=== PATIENT | male | born 1995 | race Caucasian/White ===

== ENCOUNTER 2021-05-23 09:42 | Emergency (ER) | payer SELFPAY ==
[~2021-05-23] VITALS: Ht 160 cm; Wt 80.7 kg
[2021-05-23 09:55] VITALS: BP_SYST 136
--- NOTE | 2021-05-23 09:55 | NUR ---
Pt walked in to ER with c/o headache 6/10, abdominal pain 3/10 and nausea x4 days. Reports cough and SOB on exhertion. H/O asthma and pt is fully vaccinated. 100% on RA, other v/s stable, no acute distress noted.
--- NOTE | 2021-05-23 09:55 | NUR ---
Placed in room 8 . Placed on cardiac nurse, blood pressure machine and pulse oximeter. To gown for exam. Side rails up.
--- NOTE | 2021-05-23 10:01 | NUR ---
ER Dr. Sun at bedside examining patient.
[2021-05-23] MEDS ORDERED: IBUPROFEN 800 MG TABLET PO ONE (10:15)
[2021-05-23] MEDS ORDERED: HYDROcodone/ACETAMIN 10-325 MG TAB PO ONE (10:15)
[2021-05-23 10:19] LABS: BASOPHILS # (AUTO) 0.1 K/uL (0.0-0.2); BASOPHILS % (AUTO) 1.1 % (0.0-2.0); EOSINOPHILS # (AUTO) 0.2 K/uL (0.0-0.4); EOSINOPHILS % (AUTO) 4.1 % (0.0-4.0); HEMATOCRIT 43.2 % (36-54); HEMOGLOBIN 15.3 g/dL (14.0-18.0); LYMPHOCYTES # (AUTO) 1.2 K/uL (1.0-5.5); LYMPHOCYTES % (AUTO) 22.3 % (20.5-51.5); MEAN CORPUSCULAR HEMOGLOBIN 31 pg (27-31); MEAN CORPUSCULAR HGB CONC 35 % (32-36); MEAN CORPUSCULAR VOLUME 88 fL (79.0-98.0); MONOCYTES # (AUTO) 0.4 K/uL (0.0-1.0); MONOCYTES % (AUTO) 6.7 % (1.7-9.3); NEUTROPHILS # (AUTO) 3.7 K/uL (1.8-7.7); NEUTROPHILS % (AUTO) 65.8 % (40.0-70.0); PLATELET COUNT (AUTO) 269 K/uL (130-430); RED CELL DISTRIBUTION WIDTH 13.2 % (9.0-15.0); WHITE BLOOD COUNT (AUTO) 5.5 K/uL (4.8-10.8)
[2021-05-23 10:43] LABS: ANION GAP 6 (5-15); CHLORIDE 105 mmol/L (98-107); GLUCOSE 104 mg/dL (70-99); POTASSIUM 4.2 mmol/L (3.5-5.1); SODIUM SERUM 140 mmol/L (136-145); UREA NITROGEN, BLOOD 15 mg/dL (8-21)
[2021-05-23 10:46] LABS: GFR AFRICAN AMERICAN 153 mL/min (>90); INR 0.9 (0.80-1.20); PROTHROMBIN TIME 9.9 SECS (9.5-12.5)
[2021-05-23 10:47] LABS: ALANINE AMINOTRANSFERASE 35 U/L (12-78); ASPARTATE AMINOTRANSFERASE 19 U/L (10-37); C-REACTIVE PROTEIN QUANT < 0.2 mg/dL (0-0.5); TOTAL BILIRUBIN 0.8 mg/dL (0.0-1.0)
[2021-05-23 10:59] LABS: ERYTHROCYTE SEDIMENTATION RATE 2 MM/HR (0-15)
[2021-05-23] MEDS ORDERED: HYDR-3917 PO (11:08)
[2021-05-23] MEDS ORDERED: IBUP-1971 PO (11:08)
--- NOTE | 2021-05-23 11:53 | NUR ---
Patient given written and verbal discharge instructions and verbalizes understanding. ER MD discussed with patient the results and treatment provided. Patient in stable condition. ID arm band removed. Rx of Hydrocodone and Ibuprofen given. Patient educated on pain management and to follow up with PMD. Pain Scale 2/10 tolerable for patient . Opportunity for questions provided and answered. Medication side effect fact sheet provided.
[2021-05-23 11:54] VITALS: BP_SYST 136
== END 2021-05-23 11:53 | disposition home or self-care (01) ==
LOC: SED 09:42
DX: R51.9 Headache, unspecified (principal)
CPT/HCPCS: 36415; 80053; 85025; 85610-TC; 85651-TC; 85730-TC; 86140; 99283